=== PATIENT | female | born 2000 | race Two or more races ===

== ENCOUNTER 2025-08-31 13:44 | Emergency (ER) | payer BC, OTHER ==
[~2025-08-31] VITALS: Ht 165.1 cm; Wt 70.6 kg
--- NOTE | 2025-08-31 14:00 | ECG ---
[facility] Test Date: 2025-08-31 Test Time: 13:59:33 Pat Name: RENY LORA Department: Room: Gender: F Cost Estimating Manager: ROSENDO : 2000 Requested By: JORGE RODRIGUEZ Order Number: [id number] Reading MD: Laci Moore Measurements Intervals [place] Rate: 69 P: 46 TN: 113 QRS: 72 QRSD: 95 T: 61 QT: 422 QTc: 452 Interpretive Statements Sinus rhythm Borderline short TN interval Electronically Signed On 09-01-2025 13:55:49 PST by Laci Moore Please click the below link to view image of tracing.
--- NOTE | 2025-08-31 14:42 | ED.PDOC ---
GI ASSESSMENT HPI Comments Ms. Singh is a 24-year-old female with prior medical history of esophageal spasms, who presents today with chief complaint of abdominal pain and intractable vomiting. She refers sudden onset of epigastric pain at 6:00 a.m. described as sharp/burning, radiating towards her back and retrosternal region, 9/10 intensity, associated with nausea, multiple episodes of vomiting, and two episodes of diarrhea, without aggravating or relieving factors. She denies hematemesis, bloody stools, fever, palpitations, loss of consciousness, and exposure to sick contacts. She states she had 3 alcoholic beverages yesterday. Due to persistence of symptoms, she presents for evaluation in the ED. On initial evaluation, the patient seems distressed due to persistent heaving and vomiting, she is afebrile, hypertensive, with other vitals within normal range. Chief Complaint: Nausea/Vomiting Time Seen by MD: 13:53 Allergies: Coded Allergies: NO KNOWN ALLERGIES (Unverified , 08/31/25) Home Meds Active Scripts Cefdinir (Cefdinir) 300 Mg Cap, 1 CAP PO BID for 5 Days, #10 CAP Prov:PETE GUERRERO MD 08/31/25 Information Source: Patient, Friend Mode of Arrival: Ambulatory Timing: Hours Duration: Since onset Quality: Burning, Stabbing Vomitus: Bilious, Watery Stool: Loose Severity: Severe Recent: Ingestion of ETOH Recent Hx of: None Pain Location: Epigastric Modifying Factors: Nothing Associated sign and symptoms: Nausea, Vomiting, Diarrhea Past Medical History Past Medical History (Other): Esophageal spasm Surgical History: Denies all surgeries 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 Hx Family History Family History (Other): Denies family history Social History Smoker: Non-Smoker Alcohol: Occasionally Drugs: Denies Drug Use Lives In: Home Constitutional: denies: chills, diaphoresis, fatigue, fever, malaise, sweats, weakness EENTM: denies: blurred vision, double vision, mouth pain, nose pain Respiratory: denies: cough, hemoptysis, orthopnea, shortness of breath Cardiovascular: reports: chest pain; denies: dizzy spells, diaphoresis, Dyspnea on exertion, edema, irregular heart beat, lightheadedness, palpitations Gastrointestinal: reports: abdominal pain, diarrhea, nausea, poor appetite, poor fluid intake, vomiting; denies: abdomen distended, blood streaked bowels, constipated, dysphagia, difficulty swallowing, hematemesis, melena, rectal bleeding Genitourinary: denies: burning, flank pain, frequency, hematuria, incontinence, pain, urgency Neurological: denies: dizziness, fainting, headache, numbness, paresthesia, seizure, tingling Musculoskeletal: denies: back pain, joint pain, joint swelling, muscle pain, muscle stiffness, neck pain Integumetry: denies: bruises, laceration, lesions, lumps, rash, wounds Physical Exam General Appearance: Moderate Distress HEENT: Other (Normocephalic, atraumatic, normal reactive pupils, EOM intact, pink conjunctiva, pink dry mucous membrane) Neck: Full Range of Motion, Non-Tender, Normal Inspection Respiratory: Lungs Clear, No Accessory Muscle Use, No Respiratory Distress, Normal Breath Sounds, Other (Anterior chest wall tenderness on palpation) Cardiovascular: No Edema, No Murmur, Normal Peripheral Pulses, Regular Rate/Rhythm Breast Exam: Deferred Gastrointestinal: Other (Abdomen nondistended, normal bowel sounds, soft, pain on palpation of epigastrium, no palpable masses.) Genitalia: Deferred Pelvic: Deferred Rectal: Deferred Extremities: Normal capillary refill, Normal inspection, Normal range of motion, Non-tender, No pedal edema Neurologic: Alert, No Motor Deficits, No Sensory Deficits Cerebellar Function: NOT DONE Reflexes: NOT DONE Skin: Normal Color Peripheral Pulses: 4+ dorsalis pedis (R), 4+ dorsalis pedis (L) Lymphatic: Other (No cervical adenopathy) EKG EKG : Pulse Rate (adult): 69 [place]: Normal Cardiac Rhythm: NSR Comments Borderline short AR interval Was a procedure done? Was a procedure done?: No GI differential Dx Differential Diagnosis: Angina/[place], Esophagitis, Gastritis/PUD, Gastroenteritis, GI hemorrhage, Hernia, Pancreatitis, UTI, Dehydration, Drug toxicity, Food Poisoning X-Ray, Labs, Meds, VS Vital Signs Date Time Temp Pulse Resp B/P (MAP) Pulse Ox O2 Delivery O2 Flow Rate FiO2 08/31/25 17:00 75 20 145/94 (111) 99 08/31/25 14:54 69 08/31/25 14:45 67 20 100 Room Air* 0 21 08/31/25 14:45 98.1 67 20 131/62 (85) 100 98.1 08/31/25 13:59 69 08/31/25 13:46 97.1 73 16 154/104 99 97.1 Lab Test 08/31/25 14:39 08/31/25 14:25 Range/Units White Blood Count 12.1 H 4.4-10.8 10^3/uL Red Blood Count 5.18 4.0-5.20 10^6/uL Hemoglobin 16.0 12.2-16.2 g/dL Hematocrit 46.6 H 36.0-46.0 % Mean Corpuscular Volume 89.9 80.0-100.0 fL Mean Corpuscular Hemoglobin 31.0 28.0-32.0 pg Mean Corpuscular Hemoglobin Concent 34.4 32.0-36.0 g/dL Red Cell Distribution Width 12.6 11.8-14.3 % Platelet Count 377 140-450 10^3/uL Mean Platelet Volume 9.3 6.9-10.8 fL Neutrophils (%) (Auto) 88.6 H 37.0-80.0 % Lymphocytes (%) (Auto) 7.9 L 10.0-50.0 % Monocytes (%) (Auto) 3.1 0.0-12.0 % Eosinophils (%) (Auto) 0.0 0.0-7.0 % Basophils (%) (Auto) 0.4 0.0-2.0 % Neutrophils # (Auto) 10.7 H 1.6-8.6 10 ^3/uL Lymphocytes # (Auto) 1.0 0.4-5.4 10 ^3/uL Monocytes # (Auto) 0.4 0-1.3 10 ^3/uL Eosinophils # (Auto) 0 0-0.8 10 ^3/uL Basophils # (Auto) 0.1 0-0.2 10 ^3/uL Nucleated Red Blood Cells 0.0 % Sodium Level 142 136-145 mmol/L Potassium Level 3.6 3.5-5.1 mmol/L Chloride Level 105 98-107 mmol/L Carbon Dioxide Level 22 20-31 mmol/L Anion Gap 15 5-15 Blood Urea Nitrogen 12 9-23 mg/dL Creatinine 0.76 0.550-1.02 mg/dL Glomerular Filtration Rate Calc 111 >90 mL/min BUN/Creatinine Ratio 15.8 10.0-20.0 Serum Glucose 119 H 74-106 mg/dL Calcium Level 9.6 8.7-10.4 mg/dL Total Bilirubin 1.7 H 0.2-1.0 mg/dL Aspartate Amino Transferase (AST) 15 13-40 U/L Alanine Aminotransferase (ALT) 9 7-40 U/L Alkaline Phosphatase 81 46-116 U/L Total Protein 7.9 5.7-8.2 g/dL Albumin 5.1 H 3.2-4.8 g/dL Lipase 32 12-53 U/L Urine Color Light-orange Yellow Urine Clarity Turbid H Clear Urine pH 6.5 5.0-9.0 Urine Specific [place] 1.037 H 1.001-1.035 Urine Protein 1+ H Negative Urine Ketones 3+ H Negative Urine Blood Negative Negative /uL Urine Nitrite 2+ H Negative Urine Bilirubin Negative Negative Urine Urobilinogen Normal Negative mg/dL Urine Leukocyte Esterase 3+ Negative /uL Urine RBC <1 0 - 4 /hpf Urine Microscopic WBC 53 H 0-5 /HPF Urine Squamous Epithelial Cells Mod <5 /hpf Urine Bacteria Many H None Seen /hpf Urine Mucus Few None Seen Urine Glucose Normal Normal mg/dL Urine Test Negative Negative Urine Opiates Screen Neg NEGATIVE Urine Fentanyl Screen Neg NEGATIVE Urine Barbiturates Screen Neg NEGATIVE Urine Phencyclidine Screen Neg NEGATIVE Urine Amphetamines Screen Neg NEGATIVE Urine Benzodiazepines Screen Neg NEGATIVE Urine Cocaine Screen Pos NEGATIVE Urine Cannabinoids Screen Pos NEGATIVE Current Medications Medications (Trade) Dose Ordered Sig/Nate Route Start Time Stop Time Status Last Admin Ondansetron HCl (Zofran) 4 mg ONCE ONCE IV 08/31/25 14:15 08/31/25 14:25 DC 08/31/25 14:51 Sodium Chloride 1,000 ml @ 1,000 mls/hr Q1H ONCE IV 08/31/25 14:15 08/31/25 15:14 DC 08/31/25 14:51 Al Hydrox/Mg Hydrox/Simethicone (Maalox Plus) 30 ml ONCE ONCE PO 08/31/25 14:30 08/31/25 14:31 DC 08/31/25 14:51 Lidocaine HCl (Xylocaine 2% Viscous) 10 ml ONCE ONCE PO 08/31/25 14:30 08/31/25 14:31 DC 08/31/25 14:51 Dicyclomine HCl (Bentyl Injection) 20 mg ONCE ONCE IM 08/31/25 16:15 08/31/25 16:16 DC 08/31/25 16:20 Metoclopramide HCl (Reglan Injection) 5 mg ONCE ONCE IV 08/31/25 16:15 08/31/25 16:16 DC 08/31/25 16:20 Sodium Chloride 1,000 ml @ 1,000 mls/hr Q1H ONCE IV 08/31/25 16:45 08/31/25 17:44 DC 08/31/25 17:12 Al Hydrox/Mg Hydrox/Simethicone (Maalox Plus) 30 ml ONCE ONCE PO 08/31/25 17:15 08/31/25 17:16 DC 08/31/25 17:14 Acetaminophen/ Hydrocodone Bitart ([place] 7.5/325MG Tab) 1 tab ONCE ONCE PO 08/31/25 19:00 08/31/25 19:05 DC 08/31/25 19:09 Time of 1ST Reevaluation: 16:15 Reevaluation 1ST: Unchanged Time of 2ND Reevaluation: 17:14 Reevaluation 2ND: Improved Time of 3RD Reevaluation: 19:00 Reevaluation 3RD: Unchanged Patient Education/Counseling: Diagnosis, Treatment Family Education/Counseling: No Family Present Comments Patient presented today with chief complaint of epigastric pain and intractable nausea and vomiting On initial evaluation, the patient seemed uncomfortable and in distress due to nausea and vomiting, she was afebrile, hypertensive, saturating appropriately on room air. Physical exam was positive for epigastric and retrosternal pain on palpation CBC significant for elevated WBCs likely reactive, CMP within normal range, UA significant for UTI, and UDS positive cocaine and marijuana, lipase within normal range EKG shows sinus rhythm with possible decreased AR interval Chest x-ray shows no acute cardiopulmonary process The patient was given 2 1000 cc bolus of NS, GI cocktail including Maalox 30 mL and lidocaine viscous 10 mL, with a subsequent dose of Maalox 30 mL Additionally for esophageal spasms the patient was given Bentyl 20 mg IM and Reglan 5 mg IV The patient was examined on multiple occasions due to alternating complaints of pain, with concern for drug-seeking behavior Prescription for Cefdinir 300 mg PO BID for 5 days The patient was given [place] 7.5 mg/325 mg p.o. once, after receiving this medication the patient stated she wanted to leave and subsequently eloped SEPSIS Sepsis Screen Date sepsis recognized/suspect: Aug 31, 2025 Time Sepsis recognized/suspect: 1346 Recent Procedure: No On Antibiotic Therapy: No Respiratory Rate >20: No Heart Rate >90: No Temp<36 C (96.8 F) or >38.3 C: No SBP <90 or MAP <65 mmHG: No New Acute Mental Status Change: No Is the patient on CPAP, BIPAP,: No Physician Orders Chest Xray 1 View (08/31/25 17:58) Vital Signs Date Time Temp Pulse Resp B/P (MAP) Pulse Ox O2 Delivery O2 Flow Rate FiO2 08/31/25 17:00 75 20 145/94 (111) 99 08/31/25 14:54 69 08/31/25 14:45 67 20 100 Room Air* 0 21 08/31/25 14:45 98.1 67 20 131/62 (85) 100 98.1 08/31/25 13:59 69 08/31/25 13:46 97.1 73 16 154/104 99 97.1 Laboratory Tests Test 08/31/25 14:39 White Blood Count 12.1 10^3/uL (4.4-10.8) H Medications Medications Dose Ordered Sig/Nate Route Start Time Stop Time Status Last Admin Dose Admin Acetaminophen/ Hydrocodone Bitart 1 tab ONCE ONCE PO 08/31/25 19:00 08/31/25 19:05 DC 08/31/25 19:09 Al Hydrox/Mg Hydrox/Simethicone 30 ml ONCE ONCE PO 08/31/25 14:30 08/31/25 14:31 DC 08/31/25 14:51 Al Hydrox/Mg Hydrox/Simethicone 30 ml ONCE ONCE PO 08/31/25 17:15 08/31/25 17:16 DC 08/31/25 17:14 Dicyclomine HCl 20 mg ONCE ONCE IM 08/31/25 16:15 08/31/25 16:16 DC 08/31/25 16:20 Lidocaine HCl 10 ml ONCE ONCE PO 08/31/25 14:30 08/31/25 14:31 DC 08/31/25 14:51 Metoclopramide HCl 5 mg ONCE ONCE IV 08/31/25 16:15 08/31/25 16:16 DC 08/31/25 16:20 Ondansetron HCl 4 mg ONCE ONCE IV 08/31/25 14:15 08/31/25 14:25 DC 08/31/25 14:51 Sodium Chloride 1,000 ml @ 1,000 mls/hr Q1H ONCE IV 08/31/25 14:15 08/31/25 15:14 DC 08/31/25 14:51 Sodium Chloride 1,000 ml @ 1,000 mls/hr Q1H ONCE IV 08/31/25 16:45 08/31/25 17:44 DC 08/31/25 17:12 Departure 1 Departure Time of Disposition: 19:38 Impression: Primary Impression: Intractable nausea and vomiting Additional Impression: Esophageal spasm Disposition: LEFT AWOL/ELOPED Condition: Other (Undetermined ) Additional Instructions: You presented today with chief complaint of epigastric pain and intractable nausea and vomiting On initial evaluation you were afebrile, normocardic. hypertensive, saturating appropriately on room air. Physical exam was positive for epigastric and retrosternal pain on palpation, without presence of subcutaneous crepitus Your work up including a CBC, CMP, Lipase, EKG, and Chest Xray were benign. UA significant for UTI, and UDS positive cocaine and marijuana You were given 2 1000 cc bolus of NS, GI cocktail including Maalox 30 mL and lidocaine viscous 10 mL, with a subsequent dose of Maalox 30 mL Additionally for esophageal spasms you were given Bentyl 20 mg IM and Reglan 5 mg IV Prescription for Cefdinir 300 mg PO BID for 5 days You were subsequently evaluated, vitals continue to be stable and vomiting has ceased. You were given [place] 7.5/325 mg PO once for pain We highly recommend you follow up with your PCP for further work up and monitoring. Should your symptoms persist or worsen, or should you have any further questions or concerns please present to ED. e-Prescriptions Cefdinir (Cefdinir) 300 Mg Cap 1 CAP PO BID for 5 Days, #10 CAP Prov: PETE GUERRERO MD 08/31/25 Critical Care Note Critical Care Time?: No Stability Stability form required: CHASIDY Cramer RESIDENT Aug 31, 2025 14:42 JORGE RODRIGUEZ DO Aug 31, 2025 19:20
[2025-08-31 14:45] VITALS: PULSE 67; RESP 20; TEMP 98.1; O2SAT 100
[2025-08-31] MEDS: SODIUM CHLORIDE 0.9% 1,000 ML IV ONE ×2 (14:51→17:12)
[2025-08-31] MEDS: ONDANSETRON HCL 4 MG/2 ML VIAL IV ONE (14:51)
[2025-08-31] MEDS: MAALOX PLUS or MAALOX 30 ML PO ONE ×2 (14:51→17:14)
[2025-08-31] MEDS: LIDOCAINE VISCOUS 2% 15ML UD PO ONE (14:51)
[2025-08-31 14:57] LABS: Hematocrit 46.6 % (36.0-46.0); Hemoglobin 16.0 g/dL (12.2-16.2); Mean Corpuscular Hemoglobin 31.0 pg (28.0-32.0); Mean Corpuscular Volume 89.9 fL (80.0-100.0); Nucleated Red Blood Cells % 0.0 %
[2025-08-31 15:07] LABS: Alkaline Phosphatase 81 U/L (46-116); Anion Gap 15 (5-15); BUN/Creatinine Ratio 15.8 (10.0-20.0); Blood Urea Nitrogen 12 mg/dL (9-23); Calcium 9.6 mg/dL (8.7-10.4); Carbon Dioxide 22 mmol/L (20-31); Chloride 105 mmol/L (98-107); Lipase 32 U/L (12-53); Potassium 3.6 mmol/L (3.5-5.1); Sodium 142 mmol/L (136-145); Total Protein 7.9 g/dL (5.7-8.2)
[2025-08-31 15:08] LABS: Alanine Aminotransferase 9 U/L (7-40); Albumin 5.1 g/dL (3.2-4.8); Bilirubin, Total 1.7 mg/dL (0.2-1.0); Glucose 119 mg/dL (74-106)
[2025-08-31 15:35] LABS: Urine Protein, UAD 1+ (Negative)
[2025-08-31 15:45] LABS: Cannabinoid Screen, Urine Pos (NEGATIVE)
[2025-08-31 15:52] LABS: Amphetamine Screen, Urine Neg (NEGATIVE); Barbiturate Scree,Urine Neg (NEGATIVE); Benzodiazephine Screen, Urine Neg (NEGATIVE); Cocaine Screen, Urine Pos (NEGATIVE); Opiate Scree,Urine Neg (NEGATIVE); Phencyclidine Screen, Urine Neg (NEGATIVE)
[2025-08-31] MEDS: DICYCLOMINE HCL (10MG/ML) 2 ML AMPULE IM ONE (16:20)
[2025-08-31] MEDS: METOCLOPRAMIDE HCL 5MG/ml INJ 2ml VIAL IV ONE (16:20)
[2025-08-31 17:00] VITALS: BP 145/94; PULSE 75; RESP 20; O2SAT 99
[2025-08-31] MEDS ORDERED: CEFD300C2 PO (17:33)
--- NOTE | 2025-08-31 18:47 | DVH ---
CHEST RADIOGRAPH Indication: Chest xray Technique: XY CHEST XRAY 1 VIEW Comparison: None FINDINGS: The cardiac silhouette is unremarkable. The lungs demonstrate no pulmonary airspace consolidation. Th e pulmonary vasculature is unremarkable. There is no pleural effusion. There is no pneumothorax. IMPRESSION: No pulmonary airspace consolidation.
[2025-08-31] MEDS: HYDROcodone-ACET 7.5/325MG TAB PO ONE (19:09)
== END 2025-08-31 19:11 | disposition left against medical advice (07) ==
LOC: ER 13:44
DX: K22.4 Dyskinesia of esophagus (principal); R11.2 Nausea with vomiting, unspecified; I10 Essential (primary) hypertension
CPT/HCPCS: 36415; 71045; 80053; 80307; 81001; 81025; 83690; 85025; 93005; 96361; 96372; 96374; 96375; 99285; J0500; J2405; J2765; J7030